=== PATIENT | male | born 1965 | race African-American/Black ===

== ENCOUNTER → 2018-04-28 | Outpatient (CLI) | payer OTHER | LOC: RAD 07:27 | DX: J45.40 Moderate persistent asthma, uncomplicated (principal); J98.4 Other disorders of lung; J98.11 Atelectasis ==

== ENCOUNTER → 2019-04-27 | Outpatient (CLI) | payer OTHER | LOC: RAD 07:27 | DX: J45.40 Moderate persistent asthma, uncomplicated (principal) ==

== ENCOUNTER → 2020-04-18 | Outpatient (CLI) | payer OTHER | LOC: RAD 09:36 | PROVIDERS: ATTEND Internal Medicine | DX: J84.10 Pulmonary fibrosis, unspecified (principal); J45.40 Moderate persistent asthma, uncomplicated; Z23 Encounter for immunization ==

== ENCOUNTER 2021-01-18 10:20 | Emergency (ER) | payer OTHER ==
[~2021-01-18] VITALS: Ht 188 cm; Wt 108.9 kg
[2021-01-18] MEDS ORDERED: BREO ELLIPTA 21 EACH INH (10:38)
[2021-01-18] MEDS ORDERED: ZOCOR20 MG PO (10:39)
[2021-01-18 11:10] LABS: BASOPHILS 0.8 % (0.0-2.0); EOSINOPHILS 0.2 % (0.0-3.0); HEMATOCRIT 43.9 % (42.0-52.0); HEMOGLOBIN 14.3 gm/dL (14.0-18.0); LYMPHOCYTES 19.2 % (24.0-44.0); MCH 28.8 pg (26.0-34.0); MCHC 32.6 g/dL (28.0-37.0); MCV 88.4 fL (80.0-100.0); MONOCYTES 5.2 % (1.0-8.0); PLATELET COUNT 234 thou/uL (150-400); POLYS 74.6 % (36.0-66.0); RBC 4.96 mil/uL (4.50-6.00); RDW 13.6 % (10.5-14.5); WBC 6.6 thou/uL (4.0-11.0)
[2021-01-18 11:14] LABS: CALCIUM 8.7 mg/dL (8.5-10.1); CREATININE 1.3 mg/dL (0.7-1.3)
[2021-01-18 12:20] VITALS: BP 137/73
== END 2021-01-18 12:22 | disposition home or self-care (01) ==
LOC: ER 10:20
PROVIDERS: Emergency Medicine
DX: U07.1 COVID-19 (principal); Z79.899 Other long term (current) drug therapy